=== PATIENT | male | born 1990 ===

== ENCOUNTER 2022-10-27 07:07 | Day surgery (SDC) | payer OTHER ==
[~2022-10-27] VITALS: Ht 177.8 cm; Wt 75.4 kg
[~2022-10-27 07:07] MED LIST: ACYC400 PO
--- NOTE | 2022-10-27 07:43 | NUR ---
Amb[facility] in [facility] warming gown applied. Patient states colon prep results clear. History, Chart, Medications and Allergies reviewed before start of procedure.Lungs clear T/O to Auscultation. Patient confirms NPO status and agrees with scheduled surgery. Pre-Op teaching done. Pt verbalizes understanding. Patient States Post-Procedure ride home has been arranged.
--- NOTE | 2022-10-27 08:07 | NUR ---
10/27/22 0807 Rachel Diaz HISTORY, CHART, MEDICATIONS AND ALLERGIES REVIEWED BEFORE START OF PROCEDURE. PATIENT CONFIRMS NPO STATUS AND AGREES WITH SCHEDULED PROCEDURE. 3-LEAD EKG REVIEWED WITH PHYSICIAN PRIOR TO START OF PROCEDURE. MONITOR INTACT WITH CONTINUOUS PULSE OXIMETRY,CAPNOGRAPHY, 3-LEAD EKG, INTERMITTENT BP. SUPPLEMENTAL O2 TO BE TITRATED THROUGHOUT PROCEDURE TO MAINTAIN O2 SATURATION ABOVE 90%. PATIENT DETERMINED TO BE ASA APPROPRIATE FOR PROPOFOL SEDATION PRIOR TO START OF PROCEDURE BY DR. ZEPEDA. MALLAMPATI CLASS 1 AIRWAY: COMPLETE VISULATIZATION OF THE SOFT PALATE.
--- NOTE | 2022-10-27 08:56 | NUR ---
DISCHARGE SUMMARY PT A&OX4, VSS/RA, LEW PO, DRESSED SELF. DC INS PROVIDED. PT REP UNDERSTANDING THOSE INSTRUCTIONS. IV DC'D. LEFT FLOOR VIA WC WITH DC VOLUNTEER TO GO HOME WITH RESIDENTIAL LIVING ASSISTANT, WITH ALL PERSONAL POSSESSIONS.
== END 2022-10-27 09:00 | disposition home or self-care (01) ==
LOC: ORSCMMR 07:07 → ORD 08:00 → ORSCMMR 08:00
PROVIDERS: Internal Medicine Gastroenterology
PROC: 0DBH8ZX Excision of Cecum, Via Natural or Artificial Opening Endoscopic, Diagnostic (ICD-10-PCS; principal; 2022-10-27 08:00)
DX: K62.5 Hemorrhage of anus and rectum (principal); D12.0 Benign neoplasm of cecum; F17.210 Nicotine dependence, cigarettes, uncomplicated; Z79.899 Other long term (current) drug therapy
CPT/HCPCS: 88305; J2250; J2704; J7120